=== PATIENT | female | born 1975 | race Caucasian/White ===

== ENCOUNTER 2016-07-12 21:27 | Emergency (ER) | payer OTHER ==
[2016-07-12] MEDS ORDERED: KETOROLAC TROMETHAMINE 30 MG/ML SOL IM ONE (21:36)
[2016-07-12] MEDS ORDERED: KETOROLAC TROMETHAMINE 30 MG/ML SOL ONE (21:37)
[2016-07-12] MEDS ORDERED: APAP/HYDROCODONE 325/5 TAB PO ONE (22:28)
[2016-07-12] MEDS ORDERED: APAP/HYDROCODONE 325/5 TAB ONE (22:30)
[2016-07-12 23:16] VITALS: TEMP 100.1; O2SAT 98
[2016-07-12 23:22] VITALS: BP 128/84; PULSE 96; RESP 16
== END 2016-07-12 22:40 | disposition home or self-care (01) | DRG 563 ==
LOC: ED 21:27
DX: S92.001A Unspecified fracture of right calcaneus, initial encounter for closed fracture (principal); W17.89XA Other fall from one level to another, initial encounter
CPT/HCPCS: 73610; 73630; 96372; 99283; J1885

== ENCOUNTER 2016-08-31 09:36 | Outpatient (CLI) | payer OTHER ==
[2016-07-12 23:16] VITALS: O2SAT 98
== END 2016-08-31 09:37 | disposition home or self-care (01) | DRG 561 ==
LOC: CONVCARE 09:36
PROVIDERS: ATTEND Orthopaedic Surgery
DX: S92.001D Unspecified fracture of right calcaneus, subsequent encounter for fracture with routine healing (principal)
CPT/HCPCS: 73610; 73630; 73650

== ENCOUNTER 2016-09-21 11:22 | Outpatient (CLI) | payer OTHER ==
[2016-07-12 23:16] VITALS: O2SAT 98
== END 2016-09-21 11:23 | disposition home or self-care (01) | DRG 561 ==
LOC: CONVCARE 11:22
PROVIDERS: ATTEND Orthopaedic Surgery
DX: S92.001D Unspecified fracture of right calcaneus, subsequent encounter for fracture with routine healing (principal)
CPT/HCPCS: 73650

== ENCOUNTER 2016-10-19 07:34 | Outpatient (CLI) | payer OTHER ==
[2016-07-12 23:16] VITALS: O2SAT 98
== END 2016-10-19 07:35 | disposition home or self-care (01) | DRG 561 ==
LOC: CONVCARE 07:34
PROVIDERS: ATTEND Orthopaedic Surgery
DX: S92.05 Other extraarticular fracture of calcaneus (principal)
CPT/HCPCS: 73650

== ENCOUNTER 2017-05-31 13:19 | Day surgery (SDC) | payer OTHER ==
[2017-05-31] MEDS ORDERED: MIDAZOLAM 2 MG/2 ML SOL ONE (14:19)
[2017-05-31] MEDS ORDERED: FENTANYL 100MCG/2ML SOL ONE ×3 (15:00→16:55)
[2017-05-31] MEDS ORDERED: CEFAZOLIN SODIUM 1 GM PDS ONE (15:11)
[2017-05-31] MEDS ORDERED: PROPOFOL 500 MG/50 ML EMU IV ONE (15:11)
[2017-05-31] MEDS ORDERED: DEXAMETHASONE 20 MG/5 ML (4 MG/ML SOL) ONE (15:11)
[2017-05-31] MEDS ORDERED: BUPIVACAINE HCL 0.5% MPF 10 ML SOL ONE (15:12)
[2017-05-31] MEDS ORDERED: HYDROMORPHONE 1 MG/ML SYRINGE ONE (15:25)
[2017-05-31] MEDS ORDERED: KETOROLAC TROMETHAMINE 30 MG/ML SOL ONE (16:03)
[2017-05-31] MEDS ORDERED: PROPOFOL 10 MG/ML EMU IV ONE (16:04)
[2017-05-31] MEDS: FENTANYL 100MCG/2ML SOL ONE ×2 (16:37→16:58)
[2017-05-31 17:58] VITALS: RESP 20; TEMP 98.3
[2017-05-31 18:15] VITALS: PULSE 86; O2SAT 97
[2017-05-31] MEDS ORDERED: LABETALOL HYDROCHLORIDE 5 MG/ML SOL IV ONE (18:22)
[2017-05-31] MEDS ORDERED: SODIUM CHLORIDE 0.9% FLUSH 10 ML SOL IV ONE (18:28)
[2017-05-31 18:41] VITALS: BP 117/86
== END 2017-05-31 18:55 | disposition home or self-care (01) | DRG 563 ==
LOC: SURG 13:19
PROVIDERS: ATTEND Orthopaedic Surgery
DX: S52.572A Other intraarticular fracture of lower end of left radius, initial encounter for closed fracture (principal); W19.XXXA Unspecified fall, initial encounter
CPT/HCPCS: 73100; 76000; J0690; J1100; J1885; J2250; J3010; A6402; J1170; J2704; J3490

== ENCOUNTER 2017-06-07 08:54 | Outpatient (CLI) | payer OTHER ==
[2017-05-31 18:15] VITALS: O2SAT 97
== END 2017-06-07 08:55 | disposition home or self-care (01) | DRG 561 ==
LOC: CONVCARE 08:54
PROVIDERS: ATTEND Orthopaedic Surgery
DX: S52.502D Unspecified fracture of the lower end of left radius, subsequent encounter for closed fracture with routine healing (principal)
CPT/HCPCS: 73110

== ENCOUNTER 2017-07-10 08:05 | Outpatient (CLI) | payer OTHER ==
[2017-05-31 18:15] VITALS: O2SAT 97
== END 2017-07-10 08:06 | disposition home or self-care (01) | DRG 561 ==
LOC: CONVCARE 08:05
PROVIDERS: ATTEND Orthopaedic Surgery
DX: S52.502D Unspecified fracture of the lower end of left radius, subsequent encounter for closed fracture with routine healing (principal)
CPT/HCPCS: 73110

== ENCOUNTER 2017-08-09 07:46 | Outpatient (CLI) | payer OTHER ==
[2017-05-31 18:15] VITALS: O2SAT 97
== END 2017-08-09 07:47 | disposition home or self-care (01) | DRG 561 ==
LOC: CONVCARE 07:46
PROVIDERS: ATTEND Orthopaedic Surgery
DX: S52.502D Unspecified fracture of the lower end of left radius, subsequent encounter for closed fracture with routine healing (principal); M19.041 Primary osteoarthritis, right hand; M19.042 Primary osteoarthritis, left hand
CPT/HCPCS: 73110